=== PATIENT | male | born 1970 | race Hispanic/Latino ===

== ENCOUNTER 2023-11-28 08:53 | Outpatient (CLI) | payer OTHER, SELFPAY | END 2023-11-28 08:54 | disposition home or self-care (01) | LOC: CSHWCC 08:53 | PROVIDERS: ATTEND Nurse Practitioner Family | DX: T81.32XD Disruption of internal operation (surgical) wound, not elsewhere classified, subsequent encounter (principal); E11.621 Type 2 diabetes mellitus with foot ulcer; E11.65 Type 2 diabetes mellitus with hyperglycemia; L97.509 Non-pressure chronic ulcer of other part of unspecified foot with unspecified severity | CPT/HCPCS: 11042; 97605; 99213; G0463 ==

== ENCOUNTER 2023-11-30 11:53 | Outpatient (CLI) | payer SELFPAY | END 2023-11-30 11:54 | disposition home or self-care (01) | LOC: CSHWCC 11:53 | PROVIDERS: ATTEND Nurse Practitioner Family | DX: T81.32XD Disruption of internal operation (surgical) wound, not elsewhere classified, subsequent encounter (principal); E11.621 Type 2 diabetes mellitus with foot ulcer; L97.529 Non-pressure chronic ulcer of other part of left foot with unspecified severity; E11.65 Type 2 diabetes mellitus with hyperglycemia | CPT/HCPCS: 97605 ==

== ENCOUNTER 2023-12-11 15:04 | Outpatient (CLI) | payer SELFPAY | END 2023-12-11 15:05 | disposition home or self-care (01) | LOC: CSHWCC 15:04 | PROVIDERS: ATTEND Nurse Practitioner Family | DX: E11.621 Type 2 diabetes mellitus with foot ulcer (principal); T81.32XD Disruption of internal operation (surgical) wound, not elsewhere classified, subsequent encounter; E11.65 Type 2 diabetes mellitus with hyperglycemia | CPT/HCPCS: 11044 ==

== ENCOUNTER 2023-12-14 09:21 | Outpatient (CLI) | payer SELFPAY | END 2023-12-14 09:22 | disposition home or self-care (01) | LOC: CSHWCC 09:21 | PROVIDERS: ATTEND Nurse Practitioner Family | DX: T81.32XD Disruption of internal operation (surgical) wound, not elsewhere classified, subsequent encounter (principal); E11.621 Type 2 diabetes mellitus with foot ulcer; L97.509 Non-pressure chronic ulcer of other part of unspecified foot with unspecified severity; E11.65 Type 2 diabetes mellitus with hyperglycemia | CPT/HCPCS: 97605 ==

== ENCOUNTER 2023-12-18 09:20 | Outpatient (CLI) | payer SELFPAY | END 2023-12-18 09:21 | disposition home or self-care (01) | LOC: CSHWCC 09:20 | PROVIDERS: ATTEND Nurse Practitioner Family | DX: T81.32XD Disruption of internal operation (surgical) wound, not elsewhere classified, subsequent encounter (principal); E11.621 Type 2 diabetes mellitus with foot ulcer; L97.529 Non-pressure chronic ulcer of other part of left foot with unspecified severity; E11.65 Type 2 diabetes mellitus with hyperglycemia ==

== ENCOUNTER 2023-12-21 08:44 | Outpatient (CLI) | payer SELFPAY | END 2023-12-21 08:45 | disposition home or self-care (01) | LOC: CSHWCC 08:44 | PROVIDERS: ATTEND Nurse Practitioner Family | DX: T81.32XD Disruption of internal operation (surgical) wound, not elsewhere classified, subsequent encounter (principal); E11.621 Type 2 diabetes mellitus with foot ulcer; L97.529 Non-pressure chronic ulcer of other part of left foot with unspecified severity; E11.65 Type 2 diabetes mellitus with hyperglycemia | CPT/HCPCS: 11042; 97605 ==

== ENCOUNTER 2023-12-28 08:43 | Outpatient (CLI) | payer SELFPAY | END 2023-12-28 08:44 | disposition home or self-care (01) | LOC: CSHWCC 08:43 | PROVIDERS: ATTEND Preventive Medicine Undersea and Hyperbaric Medicine | DX: T81.32XD Disruption of internal operation (surgical) wound, not elsewhere classified, subsequent encounter (principal); E11.621 Type 2 diabetes mellitus with foot ulcer; E11.65 Type 2 diabetes mellitus with hyperglycemia | CPT/HCPCS: 11042; 36416; 99215; G0463 ==

== ENCOUNTER 2024-01-04 08:56 | Outpatient (CLI) | payer SELFPAY | END 2024-01-04 08:57 | disposition home or self-care (01) | LOC: CSHWCC 08:56 | PROVIDERS: ATTEND Nurse Practitioner Family | DX: T81.32XD Disruption of internal operation (surgical) wound, not elsewhere classified, subsequent encounter (principal); E11.621 Type 2 diabetes mellitus with foot ulcer; L97.509 Non-pressure chronic ulcer of other part of unspecified foot with unspecified severity; E11.65 Type 2 diabetes mellitus with hyperglycemia | CPT/HCPCS: 11044; 97605 ==

== ENCOUNTER 2024-01-08 11:31 | Outpatient (CLI) | payer SELFPAY | END 2024-01-08 11:32 | disposition home or self-care (01) | LOC: CSHWCC 11:31 | PROVIDERS: ATTEND Nurse Practitioner Family | DX: T81.32XD Disruption of internal operation (surgical) wound, not elsewhere classified, subsequent encounter (principal); E11.621 Type 2 diabetes mellitus with foot ulcer; E11.65 Type 2 diabetes mellitus with hyperglycemia | CPT/HCPCS: 97605 ==

== ENCOUNTER 2024-01-18 11:45 | Outpatient (CLI) | payer SELFPAY | END 2024-01-18 11:46 | disposition home or self-care (01) | LOC: CSHWCC 11:45 | PROVIDERS: ATTEND Nurse Practitioner Family | DX: T81.32XD Disruption of internal operation (surgical) wound, not elsewhere classified, subsequent encounter (principal); E11.621 Type 2 diabetes mellitus with foot ulcer; L97.509 Non-pressure chronic ulcer of other part of unspecified foot with unspecified severity; E11.65 Type 2 diabetes mellitus with hyperglycemia | CPT/HCPCS: 97605 ==

== ENCOUNTER 2024-01-22 10:36 | Outpatient (CLI) | payer SELFPAY | END 2024-01-22 10:37 | disposition home or self-care (01) | LOC: CSHWCC 10:36 | PROVIDERS: ATTEND Nurse Practitioner Family | DX: T81.32XD Disruption of internal operation (surgical) wound, not elsewhere classified, subsequent encounter (principal); E11.621 Type 2 diabetes mellitus with foot ulcer; L97.509 Non-pressure chronic ulcer of other part of unspecified foot with unspecified severity; E11.65 Type 2 diabetes mellitus with hyperglycemia | CPT/HCPCS: 99213; G0463 ==